=== PATIENT | female | born 1955 | race Caucasian/White ===

== ENCOUNTER 2017-04-03 12:04 | Emergency (ER) | payer BC ==
[2017-04-03 12:15] VITALS: BP 166/90
[2017-04-03] MEDS ORDERED: Rabies VIRUS VACCINE, HDCV* 2.5 UNIT/ML 1 ML IM ONE (14:16)
[2017-04-03] MEDS ORDERED: Tetan/Diph/Pertus SYR(Tdap)* 0.5 ML SYR(BOOSTRIX) use SYR IM ONE (14:16)
[2017-04-03] MEDS ORDERED: Rabies Immune Globulin(Human)* 150 UNITS/ML 2 ML VIAL (300 UNITS) IM ONE (14:16)
--- NOTE | 2017-04-03 14:18 | ED ---
Bite Injury/Animal - HPI Summary HPI Summary: 62 female presents from [facility] urgent care with complaints of being attacked and bitten by a page just A [employer] ~2 hours ago while at work. 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 She states the page repeatedly attacked her, even when she was hitting it with a broom to get him away. She denies noticing any foaming of the mouth. States bleeding is under control however her ankle is very sore. Has never had rabies vaccinations in the past. Denies PMhx. She contacted the [facility] who obtianed the animal and are testing it for rabies. Also informed her she needed to have her first dose of rabies prophylaxis due to the animals behavior. - History of Current Complaint Chief Complaint: EDAnimalBite Stated Complaint: PAGE BITE Time Seen by Provider: 04/03/17 12:17 Hx Obtained From: Patient Onset of Injury: Happened hours ago Type of Bite: Wild Animal - page Hx of Bite: Unprovoked Has Animal Been Immunized?: No Severity Initially: Mild Severity Currently: Mild Pain Intensity: 3 Pain Scale Used: 0-10 Numeric Character: Abrasion/Laceration - 2 of right ankle Aggravating Factor(s): Nothing Alleviating Factor(s): Nothing Associated Signs And Symptoms: Positive: Negative Animal Available for Observation: Yes Animal Control Notified: Yes - Allergies/Home Medications Allergies/Adverse Reactions: Allergies Allergy/AdvReac Type Severity Reaction Status Date / Time No Known Allergies Allergy Verified 08/17/16 17:54 PMH/Surg Hx/FS Hx/Imm Hx Endocrine/Hematology History: Denies: Hx Diabetes Cardiovascular History: Reports: Hx Hypertension - Surgical History Surgery Procedure, Year, and Place: Hysterectomy with benign tumor - Immunization History Date of Tetanus Vaccine: 04/03/17 Immunizations Up to Date: Yes Infectious Disease History: Reports: Hx Shingles Denies: Traveled Outside the [place] in Last 30 Days - Family History Known Family History: Positive: Other - NONCONTIBUTORY - Social History Alcohol Use: None Substance Use Type: Reports: None Smoking Status (MU): Never Smoked Tobacco Review of Systems Constitutional: Negative Cardiovascular: Negative Respiratory: Negative Gastrointestinal: Negative Musculoskeletal: Negative Positive: Other - laceration from animal bite, pain Neurological: Negative All Other Systems Reviewed And Are Negative: Yes Physical Exam Triage Information Reviewed: Yes Vital Signs On Initial Exam: Initial Vitals Temp Pulse Resp BP Pulse Ox 96.6 F 86 17 166/90 99 04/03/17 12:10 04/03/17 12:10 04/03/17 12:10 04/03/17 12:10 04/03/17 12:10 BP elevated however patient is diagnosed with HTN. Vital Signs Reviewed: Yes Appearance: Positive: Well-Appearing, No Pain Distress, Well-Nourished Skin: Positive: Warm, Skin Color Reflects Adequate Perfusion, Dry, Other - 2 lacerations to right posterior ankle. 1 approximately 1cm in length linear and second 1.5cm in length, both epidermal layer and linear. no surrounding erythema , not actively bleeding. No FB.. Negative: Cold, Numb Head/Face: Positive: Normal Head/Face Inspection Eyes: Positive: Normal, Conjunctiva Clear ENT: Positive: Hearing grossly normal Neck: Positive: Supple, Nontender Respiratory/Lung Sounds: Positive: Clear to Auscultation, Breath Sounds Present. Negative: Rales, Rhonchi, Stridor, Wheezes Cardiovascular: Positive: Normal, RRR, Pulses are Symmetrical in both Upper and Lower Extremities - 2 +. Negative: Murmur, Rub Abdomen Description: Positive: Nontender Bowel Sounds: Positive: Present Musculoskeletal: Positive: Normal, Strength/ROM Intact Neurological: Positive: Normal, Sensory/Motor Intact - sensation intact, Alert, Oriented to Person Place, Time, CN Intact II-III, Reflexes Intact, NV Bundle Intact Distally, Normal Gait Psychiatric: Positive: Normal AVPU Assessment: Alert Procedures - Laceration/Wound Repair 1 Location: Other - right ankle Description: Linear Length, Depth and Shape: 1.5cm length, epidermal layer, linear Irrigated w/ Saline (ccs): 150 Laceration/Wound Explored: clean, no foreign body removed Closure: SteriStrips - 2 Sterile Dressing Applied?: Yes - telfa and coband Diagnostics - Vital Signs Vital Signs Temp Pulse Resp BP Pulse Ox 04/03/17 12:10 96.6 F 86 17 166/90 99 - Laboratory Lab Statement: Any lab studies that have been ordered have been reviewed, and results considered in the medical decision making process. Bite Injury Course/Dx - Course Course Of Treatment: patients wounds were irrigated with 100cc of normal saline. rabies prophylaxis administered by me into the wound 3.5ml. Remaining 8.5 adminstered IM. Patient tolerated procedure well. !.5cm lac was steri strippled with 2 steri strips, not completely closed due to concern for infection. No concern for fracture. Also updated rabies vaccine and tetanus. Aware of remaining prphylaxis regimen and working with [facility]. [facility] was spoken with multiple times throughout visit and advised to give the rabies prophylaxis due to animal behavior.Given augmentin for prophylaxis x 10 days. Aware of worsening signs and symptoms. Folllow up with [facility] and PCP. - Diagnoses Differential Diagnosis/HQI/PQRI: Positive: Cellulitis, Laceration, Rabies Exposure, Other Provider Diagnosis: Rabies, need for prophylactic vaccination against, Animal bite of ankle Discharge - Discharge Plan Condition: Stable Disposition: HOME Prescriptions: Amoxicillin/Clavulanate TAB* [Augmentin TAB 875*] 875 mg PO BID #20 tab Patient Education Materials: Rabies (ED), Rabies Immune Globulin (By injection) , Rabies Vaccine (ED), Animal Bite (ED) Referrals: Yohana Vidales MD [Primary Care Provider] - Additional Instructions: Take prescribed antibiotic as directed until entire dose is finished. Watch for signs of infection of lacerations (redness, swelling, discharge, warmth). Follow up with PCP. You will hear from [facility] tomorrow evening. Continue rabies prophylaxis vaccinations as scheduled at [facility] day 3, 7 and 14. If symptoms worsen or new symptoms develop please seek medical attention promptly.
[2017-04-03] MEDS ORDERED: Rabies Immune Globulin(HUMAN)* 150 UNIT/ML 10 ML IM ONE ×2 (14:44→14:49)
[2017-04-03] MEDS ORDERED: Rabies Vaccine, PCEC INJ* 1 ml ONE (14:54)
== END 2017-04-03 16:33 | disposition home or self-care (01) ==
LOC: ED 12:04
DX: S91.051A Open bite, right ankle, initial encounter (principal); W64.XXXA Exposure to other animate mechanical forces, initial encounter; Y93.9 Activity, unspecified; Y92.9 Unspecified place or not applicable; Y99.9 Unspecified external cause status
CPT/HCPCS: 90375; 90471; 90675; 90715; 99283

== ENCOUNTER 2019-02-02 13:40 | Emergency (ER) | payer BC, OTHER ==
[2019-02-02 13:52] VITALS: BP 142/98
[2019-02-02] MEDS ORDERED: Ondansetron ODT TAB* 4 MG PO ONE (14:11)
--- NOTE | 2019-02-02 14:15 | UC ---
Abdominal Pain Female HPI - HPI Summary HPI Summary: 4 days of nausea and fatigue---no fevers today began with LLQ pain and vomiting - History of Current Complaint Chief Complaint: UCGI Stated Complaint: ABDOMINAL PAIN Time Seen by Provider: 02/02/19 14:07 Hx Obtained From: Patient ?: No Onset/Duration: Gradual Onset, Lasting Days - 4, Worse Since - noon today Timing: Constant Pain Intensity: 7 Pain Scale Used: 0-10 Numeric Location: Discrete At: LLQ Radiates: No Character: Colicy, Cramping Aggravating Factor(s): Nothing Alleviating Factor(s): Nothing Associated Signs and Symptoms: Positive: Decreased Appetite, Nausea Allergies/Adverse Reactions: Allergies Allergy/AdvReac Type Severity Reaction Status Date / Time No Known Allergies Allergy Verified 02/02/19 13:52 Home Medications: Home Medications Lisinopril TAB* [Prinivil TAB 5 MG*] 1 tab PO DAILY 02/02/19 [History Confirmed 02/02/19] PMH/Surg Hx/FS Hx/Imm Hx Previously Healthy: No Cardiovascular History: Hypertension - Surgical History Surgical History: Yes Surgery Procedure, Year, and Place: Hysterectomy with benign tumor - Family History Known Family History: Positive: Other - NONCONTIBUTORY - Social History Occupation: Employed Full-time Lives: With Family Alcohol Use: None Substance Use Type: None Smoking Status (MU): Never Smoked Tobacco - Immunization History Most Recent Tetanus Shot: UTD Review of Systems All Other Systems Reviewed And Are Negative: Yes Constitutional: Positive: Negative Skin: Positive: Negative Eyes: Positive: Negative ENT: Positive: Negative Respiratory: Positive: Negative Cardiovascular: Positive: Negative Gastrointestinal: Positive: Abdominal Pain, Vomiting, Nausea Genitourinary: Positive: Negative Motor: Positive: Negative Neurovascular: Positive: Negative Musculoskeletal: Positive: Negative Neurological: Positive: Negative Psychological: Positive: Negative Is Patient Immunocompromised?: Yes Physical Exam Triage Information Reviewed: Yes Appearance: Well-Nourished, Ill-Appearing, Pain Distress Vital Signs: Initial Vital Signs Temp 96.9 F 02/02/19 13:49 Pulse 95 02/02/19 13:49 Resp 18 02/02/19 13:49 BP 142/98 02/02/19 13:49 Pulse Ox 98 02/02/19 13:49 Vital Signs Reviewed: Yes Eye Exam: Normal Eyes: Positive: Conjunctiva Clear ENT Exam: Normal ENT: Positive: Normal ENT inspection, Hearing grossly normal. Negative: Trismus , Muffled voice, Hoarse voice Dental Exam: Normal Neck exam: Normal Neck: Positive: Supple, Nontender Respiratory Exam: Normal Respiratory: Positive: Chest non-tender, No respiratory distress, No accessory muscle use Cardiovascular Exam: Normal Cardiovascular: Positive: RRR, Brisk Capillary Refill Abdomen Description: Negative: Nontender Musculoskeletal Exam: Normal Musculoskeletal: Positive: Strength Intact, ROM Intact, No Edema Neurological Exam: Normal Neurological: Positive: Alert, Muscle Tone Normal Psychological Exam: Normal Skin Exam: Normal Abd Pain Female Course/Dx - Course Course Of Treatment: will d/c patient from urgent care to go to hospital by private car with daughter driving--- - Differential Dx/Diagnosis Provider Diagnosis: Acute abdominal pain Discharge - Sign-Out/Discharge Documenting (check all that apply): Patient Departure All imaging exams completed and their final reports reviewed: No Studies - Discharge Plan Condition: Stable Disposition: HOME Patient Education Materials: Acute Abdominal Pain (DC) Referrals: Yohana Vidales MD [Primary Care Provider] - Additional Instructions: nothing to eat of drink---go directly to the emergency department for further care - Billing Disposition and Condition Condition: STABLE Disposition: Home
== END 2019-02-02 14:15 | disposition home or self-care (01) ==
LOC: UCEAST 13:40
DX: R10.32 Left lower quadrant pain (principal); R11.2 Nausea with vomiting, unspecified; I10 Essential (primary) hypertension; Z90.710 Acquired absence of both cervix and uterus
CPT/HCPCS: 99212; A9270-GY; G0463

== ENCOUNTER 2019-02-02 14:37 | Emergency (ER) | payer BC ==
--- NOTE | 2019-02-02 15:29 | ED ---
Abdominal Pain/Female - HPI Summary HPI Summary: This patient is a 63 year old F arrives by private car to [facility] from [facility] accompanied by her daughter with a chief complaint of nausea, fatigue, and decreased appetite for the past four days. Suddenly at noon today LLQ burning/ pressure pain began that radiates into the groin. Pain rated at 8/10 that improved after vomiting today to a 5/10. Two bouts of vomiting today that looked like undigested food. One bout of diarrhea today. Reports chills, bi- frontal headache, left breast pain last night for a couple hours that is currently resolved, and two bouts of SOB early this week. Patient reports recent illness with non-productive cough and rhinorrhea. Denies recent fever, urinary symptoms, hx of kidney stones. and LE pain/swelling. Denies blood in vomit or diarrhea. Patient called her PCP, Dr. Vidales and was sent to the Emergency Department for imaging. Reports previous colonoscopy was normal. 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 Vital signs while in room: HR 142 bpm, BP 122/63, O2 sat 93%, Temperature 103.1 by mouth Patient given 4mg ODT at [facility] - History of Current Complaint Chief Complaint: EDAbdPain Stated Complaint: NAUSEA, ABD PAIN PER DAUGHTER Hx Obtained From: Patient, Other: - urgent care records Onset/Duration: Sudden Onset, Lasting Hours Timing: Constant Severity Initially: Severe Severity Currently: Moderate Pain Intensity: 5 Pain Scale Used: 0-10 Numeric Location: Discrete At: LLQ Radiates: Yes Radiates to: Inguinal Character: Sharp Aggravating Factor(s): Nothing Alleviating Factor(s): Vomiting Associated Signs and Symptoms: Positive: Fever, Cough, Decreased Appetite, Nausea, Vomiting, Diarrhea Allergies/Adverse Reactions: Allergies Allergy/AdvReac Type Severity Reaction Status Date / Time No Known Allergies Allergy Verified 02/02/19 14:52 PMH/Surg Hx/FS Hx/Imm Hx Previously Healthy: No Endocrine/Hematology History: Reports: Hx Diabetes - "pre-diabetic" Cardiovascular History: Reports: Hx Hypertension GI History: Reports: Hx Ulcer - per pt "lactic ulcer". 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 Negative: Fever Positive: Nasal Discharge Positive: Chest Pain - left side, last pm, sharp, fleeting, mild, resolved Positive: Shortness Of Breath, Cough Positive: Abdominal Pain, Vomiting, Diarrhea, Nausea Positive: no symptoms reported Negative: Myalgia, Edema Skin: Negative Positive: Headache Psychological: Normal All Other Systems Reviewed And Are Negative: Yes Physical Exam - Summary Physical Exam Summary: Appearance: Ill-appearing, moderate pain distress, well-nourished, febrile, tachycardic Skin: Warm, color reflects inadequate perfusion, mottling on abdomen, diffuse; dry Head: Normal Head/Face inspection, atraumatic Eyes: Conjunctiva clear ENT: Normal inspection, moist mucosa Neck: Supple, no nodes, no JVD Respiratory: Lungs clear, normal breath sounds, no respiratory distress Cardio: RRR, No murmur, pulses normal, brisk capillary refill Abdomen: Soft, tender LLQ, no guarding, no rebound, no masses, no CVAT, no hernia Bowel sounds: Present Musculoskeletal: Strength Intact/ROM intact, no calf tenderness, no edema. Psychological: Normal Neuro: Alert, muscle tone normal, no focal deficit Triage Information Reviewed: Yes Vital Signs On Initial Exam: Initial Vitals Temp Pulse Resp BP Pulse Ox 98.7 F 114 18 148/98 98 02/02/19 14:40 02/02/19 14:40 02/02/19 14:40 02/02/19 14:40 02/02/19 14:40 Vital Signs Reviewed: Yes Diagnostics - Vital Signs Vital Signs Temp Pulse Resp BP Pulse Ox 02/02/19 14:40 98.7 F 114 18 148/98 98 - Laboratory Result Diagrams: 02/02/19 15:51 02/02/19 15:51 Lab Statement: Any lab studies that have been ordered have been reviewed, and results considered in the medical decision making process. - Radiology CXR Radiology Interpretation Completed By: Radiologist Summary of Radiographic Findings: NO ACTIVE CARDIOPULMONARY DISEASE IS NOTED. ED physician has reviewed this report. - CT CT A/P CT Interpretation Completed By: Radiologist Summary of CT Findings: 1. 5 mm obstructing calculus in proximal left ureter with significant left. hydronephrosis, perinephric fluid and stranding, and proximal periureteral. stranding. Urothelial enhancement is also noted in the dilated proximal left. ureter. Superimposed infection is not excluded. 2. Status post hysterectomy. ED Physician has reviewed this report. - EKG 1613 Cardiac Rate: Tachycardia - 139 BPM EKG Rhythm: Sinus Tachycardia ST Segment: Non-Specific Ectopy: None EKG Comparison: Other - no prior to compare Summary of EKG Findings: reveals nml AV/IV CT, left axis deviation (-67). nonspecific ST-T changes, rate related ST-T wave 1mm depression across anterior leads Re-Evaluation - Re-Evaluation 1 Re-Evaluation Time: 18:30 Change: Improved Comment: SEPSIS REASSESSMENT: SEE SEPSIS PROGRESS NOTE: Nurse Orquidea reports sepsis protocol fluids have infused 2650ml NS. RE-EXAM DONE. Appearance: Ill- appearing, moderate pain distress, well-nourished. Skin: Warm; color reflects adequate perfusion, improved since admission after fluids; dry. Head: Normal Head/Face inspection, atraumatic. Eyes: Conjunctiva clear. ENT: Normal inspection. Neck: Supple, no nodes, no JVD. Respiratory: Lungs clear, normal breath sounds, no respiratory distress. Cardio: RRR, No murmur, pulses normal, brisk capillary refill. Abdomen: Soft, tender LLQ, no rebound or guarding. Bowel sounds: Present. Musculoskeletal: Strength Intact/ROM intact, no calf tenderness, no edema. Psychological: Normal. Neuro: Alert, muscle tone normal , no focal deficit 2 Re-Evaluation Time: 19:28 Change: Worse Comment: Dr. Tovar in room with patient. Pt now in septic shock. Is on vasopressor, norepinephrine drip, discussed with pharmacist, Sasha for MAP <65 x 2 in a row measurements. Pt's appearance is improved, remains awake and alert. Abd, soft, tender LLQ. Pain is controlled. Daughter remains with pt. 3 Re-Evaluation Time: 20:10 Change: Improved Comment: Informed consent obtained for transfer. BP improved on norepinephrine drip. Pt remains awake and alert. Abdominal Pain Fem Course/Dx - Course Course Of Treatment: 63 year old F arrives by private car to [facility] after walking into [facility] accompanied by her daughter with a chief complaint of nausea, fatigue, and decreased appetite for the past four days. Suddenly at noon today LLQ burning/pressure pain began that radiates into the groin. Two bouts of vomiting today that looked like undigested food. One bout of diarrhea today. Reports chills, bi-frontal headache, left breast pain last night for a couple hours that is currently resolved, and two bouts of SOB early this week. Patient reports recent illness with non-productive cough and rhinorrhea. Denies recent fever, urinary symptoms, hx of kidney stones. and LE pain/swelling. PMHx of HTN , lactic ulcer, endometriosis, and pre-diabetes controlled with diet. Vital signs while in room: HR 142 bpm, BP 122/63, O2 sat 93%, Temperature 103.1 by mouth. Patient given 4mg ODT at [facility]. Sepsis protocol initiated with abnormal vital signs room and SIRS criteria meet. 30ml per kilo of fluids given to 2650mls total. Patient additionally given 4mg morphine, 15mg IV Toradol, 4mg IV Zofran, and IV Zosyn 3.375gm for likely intraabdominal source. Of note, blood cultures obtain prior to IV antibiotics, however urine culture not obtained prior to antibiotics. Pt unable to provide urine sample at time requested. Waiting to give antibiotics in order to obtain urine culture would be detrimental to pt's care and her condition could worsen by waiting for UA sample. Abnormal Bloodwork reveals WBC 2.3, RBC 4.99, Hct 46, Plt count 101, absolute lymphs 0.2, APTT 22.4, sodium 134, chloride 100, BUN 25, Creatinine 1.28, glucose 185, lactic acid 3.3, magnesium1.7, total bilirubin 1.2, C- reactive protein 12.7. Flu swabs are negative. At 174, Dr. Keane, hospitalist agrees to see patient in the ED. Patient went to CT at 1747. CT A/P as per radiologist, "1. 5 mm obstructing calculus in proximal left ureter with significant left. hydronephrosis, perinephric fluid and stranding, and proximal periureteral. stranding. Urothelial enhancement is also noted in the dilated proximal left. ureter. Superimposed infection is not excluded. 2. Status post hysterectomy. SEPSIS RE-EVAL at 1830: HR 120 BPM, SaO2 91, MAP 75. At 1854 informed patients BP manually is 60/48 and pressors are given immediately. Patient will require transfer for nephrostomy, is not stable for stent placement, per Dr. Tovar, urology, recommendation. At 1920 patients RN informs of MAP in 80 on norepinephrine drip. At 192 Patient will be transferred to [facility], as they are the closest facility able to perform the needed percutaneous nephrosomy. Accepting physician is unknown at this time , will discuss futher with hr business partner. At 1930, Dr. Bradshaw, hr business partner will be accepting physician for ED to ICU transfer. Prior to transfer, BP 110/63 on norepinephrine drip at 8 mcgs/min, Temp is 100.9. P112, resps unlabored, no hypoxia. Pt remains alert, oriented. LLQ pain unchanged, tender on palpation without guarding or rebound with BS present. Skin turgor normal, no mottling. Pt is in critical condition, stable for transfer on norepinephrine drip, ALS status, [facility]. Family remain with pt (son, daughter and son-in-law) and they witnessed informed consent to transfer and are aware of pt's critical condition. - Diagnoses Differential Diagnosis: Positive: Bowel Obstruction, Diverticulitis, Renal Colic , Urinary Tract Infection Provider Diagnoses: Abdominal pain, Tachycardia, Septic shock, Hydronephrosis due to obstruction of ureter, Fever, Acute hypotension, Leukopenia, Thrombocytopenia, Hypomagnesemia, UTI (urinary tract infection) - Provider Notifications Discussed Care Of Patient With: Galo Tovar - needs transfer for nephrostomy. Too unstable due to hypotension requiring pressors for pt to have urinary stent placed Reason For Transfer: Specialty available at [facility] but not transplant nurse practitioner. - no IR transplant nurse practitioner today at [facility] - Critical Care Time Critical Care Time: 75-104 min - 80 minutes Discharge - Sign-Out/Discharge Documenting (check all that apply): Patient Departure - transfer - Discharge Plan Condition: Critical Disposition: TRANS HIGHER LVL OF CARE FAC Referrals: Yohana Vidales MD [Primary Care Provider] - - Billing Disposition and Condition Condition: CRITICAL Disposition: Trans Higher Lvl of Care Fac - Attestation Statements Document Initiated by Scribe: Yes Documenting Scribe: Sujatha Jorge Provider For Whom Bijan is Documenting (Include Credential): Genet Abdalla MD Scribe Attestation: Sujatha Padron, scribed for Genet Abadlla MD on 02/03/19 at 0002. Scribe Documentation Reviewed: Yes Provider Attestation: The documentation as recorded by the Sujatha riojas accurately reflects the service I personally performed and the decisions made by meGenet MD Status of Scribe Document: Viewed
[2019-02-02] MEDS ORDERED: NS 0.9% 1000 ML** 2,000 ML IV SCH (15:30)
[2019-02-02] MEDS ORDERED: Morphine 4 MG/ML VIAL (1 ml) 4 MG/ML VIAL IV ONE (15:40)
[2019-02-02] MEDS ORDERED: Ondansetron INJ* 2 MG/ML VIAL IV ONE (15:56)
[2019-02-02 15:59] LABS: ABS Basophils 0 10^3/ul (0-0.2); ABS Eosinophils 0 10^3/ul (0-0.6); ABS Lymphocytes 0.2 10^3/ul (1.0-4.8); ABS Monocytes 0 10^3/ul (0-0.8); ABS Nucleated RBC 0 10^3/ul; Eosinophil % 0.3 %; Hematocrit 46 % (33-41); Hemoglobin 15.5 g/dL (12.0-16.0); Lymphocyte % 8.2 %; Mean Corpuscular HGB Conc 34 g/dL (31-36); Mean Corpuscular Hemoglobin 31 pg (27-31); Mean Corpuscular Volume 92 fL (80-97); Mean Platelet Volume 8.2 fL (7.4-10.4); Nucleated Red Blood Cells % 0.4; Platelet Count 101 10^3/uL (150-450); Red Blood Count 4.99 10^6 /uL (3.70-4.87); Red Cell Distribution Width 12 % (10.5-15); White Blood Count 2.3 10^3/uL (3.5-10.8)
[2019-02-02 16:11] LABS: Activated Partial Thrombo Time 22.4 seconds (26.0-36.3); INR 0.99 (0.77-1.02)
[2019-02-02] MEDS ORDERED: NS 0.9% IV ONE (16:15)
[2019-02-02 16:16] LABS: Albumin 4.3 g/dL (3.2-5.2); Albumin/Globulin Ratio 1.6 (1-3); BUN/Creatinine Ratio 19.5 (8-20); C Reactive Protein 12.7 mg/L (<8.01); Calcium 9.4 mg/dL (8.6-10.3); EGFR African American 51.3 (>60); EGFR Non-African American 42.4 (>60); Globulin 2.7 g/dL (2-4); Magnesium 1.7 mg/dL (1.9-2.7); Potassium 4.3 mmol/L (3.5-5.0); Total Bilirubin 1.2 mg/dL (0.2-1.0)
[2019-02-02] MEDS ORDERED: Piperacillin/Tazobac ADVAN(*) 3.375 GM in NS 0.9% 100 ML* 100 ML IVPB ONE (16:19)
[2019-02-02 16:50] LABS: Influenza A Molecular NEGATIVE (Negative); Influenza B Molecular NEGATIVE (Negative)
[2019-02-02] MEDS ORDERED: Ketorolac INJ* 30 MG/ML 1 ML VIAL IV PUSH ONE (16:57)
[2019-02-02] MEDS ORDERED: Iodixanol* (CONTRAST) 320 MG/ML 100 ML SDV IV ONE (17:08)
[2019-02-02] MEDS ORDERED: Norepinephrine 16MCG/ML IVPRE* 4,000 MCG/250 ML BAG IV SCH (19:00)
--- NOTE | 2019-02-02 19:09 | PN ---
Hospitalist Progress Note Date of Service: 02/02/19 Brief Hospitalist Consult Note, Full Report to Follow: Patient Evaluated for Admission due to Sepsis. Patient had 4 days of F/C, N/V and today developed severe abdominal pain radiating to the groin, In the ED patient is Severely Tachycardic and has low BPs. Patient did not adequately respond to fluid bolus and is requiring vasopressors. CT A/P shows left sided obstructing kidney stone with hydronephrosis based on this author's read. Discussed with Dr. Tovar of urology who recommended Nephrostomy tube and transfer if necessary. Advised patient to be transferred to nearest facility with this capability.
[2019-02-02 19:21] LABS: Urine Appearance Cloudy; Urine Bacteria 1+ (Absent); Urine Bilirubin Negative (Negative); Urine Blood 2+ (Negative); Urine Color Yellow; Urine Glucose Negative (Negative); Urine Ketones Trace (Negative); Urine Nitrite Negative (Negative); Urine Protein 1+(30 mg/dL) (Negative); Urine Red Blood Cell Absent (Absent); Urine Specific Gravity 1.027 (1.010-1.030); Urine Squamous Epithelial Cell Present (Absent); Urine Urobilinogen Negative (Negative); Urine White Blood Cell 2+(11-20/hpf) (Absent)
[2019-02-02 20:44] VITALS: BP 113/70
--- NOTE | 2019-02-02 23:56 | PN ---
Sepsis Event Evaluation Date of Evaluation: 02/02/19 - after RN states 30ml/kg IVNS infused Current Stage of Sepsis: Severe Sepsis Vital Signs - Last 12 Hours: Vital Signs - 12 hr Temp Pulse Resp BP Pulse Ox 02/02/19 20:44 100.2 F 112 24 113/70 98 02/02/19 20:31 119 18 115/71 98 02/02/19 20:26 115 26 109/65 97 02/02/19 20:21 117 24 116/69 98 02/02/19 20:16 100.4 F 118 21 110/63 98 02/02/19 20:11 116 30 115/66 97 02/02/19 20:06 113 25 118/76 98 02/02/19 20:01 115 23 117/71 97 02/02/19 20:00 115 17 97 02/02/19 19:56 116 23 123/69 97 02/02/19 19:51 114 22 126/71 97 02/02/19 19:46 113 25 116/64 96 02/02/19 19:41 114 30 116/72 96 02/02/19 19:36 110 26 121/74 96 02/02/19 19:31 112 24 113/70 96 02/02/19 19:27 100.9 F 02/02/19 19:24 102 27 85/56 95 02/02/19 19:10 101 33 80/56 96 02/02/19 19:03 101 22 84/54 95 02/02/19 18:51 105 26 69/47 02/02/19 18:48 108 27 94/63 97 02/02/19 18:39 103 20 82/53 95 02/02/19 18:15 108 22 90/57 92 02/02/19 18:10 101.3 F 110 21 80/60 92 02/02/19 17:10 119 22 102/62 91 02/02/19 16:40 127 23 136/65 95 02/02/19 16:36 103.1 F 128 16 122/63 94 02/02/19 16:33 94 02/02/19 16:14 101.3 F 123 20 122/63 92 02/02/19 16:10 103.1 F 138 14 122/63 92 02/02/19 14:40 98.7 F 114 18 148/98 98 Lactic Acid: 02/02/19 15:51 Lactic Acid 3.3 H* - Cardiopulmonary Exam Capillary Refill: < or = to 5 seconds Respiratory: Symmetrical Chest Expansion and Respiratory Effort, Clear to Auscultation Cardiovascular: NL Sounds; No Murmurs; No JVD, RRR, No Edema - Peripheral Pulse Exam Radial Pulses: Bilateral Normal Pedal Pulses: Bilateral Normal Posterior Tibial Pulse: Bilateral Normal - Skin Exam Skin Exam: Normal Turgor - Vicky Coma Scale Best Eye Response: 4 - Spontaneous Best Motor Response: 6 - Obeys Commands Best Verbal Response: 5 - Oriented Coma Scale Total: 15 Assess/Plan/Problems-Billing Assessment:
--- NOTE | 2019-02-03 01:52 | CONS ---
CC: Dr. Genet Abdalla; Dr. Galo Tovar * CONSULTATION REPORT: DATE OF CONSULT: 02/02/19 - EMERGENCY DEPT CONSULTING PROVIDER: Genet Abdalla MD CONSULTING UROLOGIST: Dr. Galo Tovar. CHIEF COMPLAINT: Severe left lower quadrant abdominal pain. HISTORY OF PRESENT ILLNESS: Ms. Obando is a 63-year-old female with past medical history significant only for hypertension and fatty liver disease, who presents to the emergency department with 4 days of intermittent nausea, dizziness, fatigue, fevers, and chills. The patient states these have been on and off. The patient has not passed out but feels dizzy frequently when she stands up. This happened before when she was initiated on blood pressure medications but this is not a common occurrence for her. The patient assumed she just had a viral respiratory infection as she had been exposed many of them at work. The patient has had poor oral intake, taking very little fluid and then not being able to tolerate any soft food. The patient then suddenly on the morning of had sudden pressure and abdominal pain in her left lower quadrant which radiated into her groin with severe and stabbing. The patient has never had an urinary tract infection in the past. The patient had urinary incontinence, urinary frequency but no dysuria, no hematuria, no pyuria but having drinking lots of water and still producing quite a bit of urine. The patient had no pain in her back. The patient denies diarrhea, abdominal pain, chest pain, or shortness of breath. In the emergency department, the patient was found to have a low white blood cell count of 2.3, low platelet count at 101, elevated creatinine 1.28, elevated lactic 3.3, elevated bilirubin at 1.2, had negative Influenza A and B. Chest x-ray was negative. CT abdomen and pelvis revealed left-sided obstructive kidney stone with perinephric stranding, epithelial enhancement and with hydronephrosis and concern for superimposed infection. The patient in the emergency department was tachycardic and her blood pressure was initially in the normal range but quickly deteriorated with MAPs consistently below 65 with the lowest being blood pressure approximately 60/30 confirmed by manual blood pressure reading. The patient was then initiated on vasopressors. The patient received approximately 5 L of fluid in the emergency department with her blood pressure remaining low. This case was discussed with Dr. Galo Tovar of Urology, who said that given that there can be a transient increase in septic symptoms after a stent is placed that even if the patient was able to be stabilized on pressors, she will be a high risk to take to the emergency department and percutaneous nephrostomy tube would be preferable. There is no interventional radiology rehabilitation therapist at this institution at this time. PAST MEDICAL HISTORY: Hypertension, current shingles, fatty liver disease . PAST SURGICAL HISTORY: Hysterectomy MEDICATIONS: 1. Lisinopril 5 mg p.o. daily. 2. Vitamin B complex 1 tab p.o. daily. 3. Milk thistle 1 tab p.o. daily. 4. Topical cannabis CBD oil for left rib pain. ALLERGIES: No known drug allergies. FAMILY HISTORY: The patient's mother is alive and has dementia. The patient's father of pancreatic cancer. The patient's brother has prediabetes. The patient's another brother with asthma and gout. The patient has 4 other siblings who are healthy. SOCIAL HISTORY: The patient has never smoked, drink, or use illicit drugs. 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 REVIEW OF SYSTEMS: A 14-point review of systems was reviewed and is negative except as above in the HPI. PHYSICAL EXAM: General: The patient is a 63-year-old female who appears stated age and sitting comfortably in bed, in no acute distress. Vital Signs: At the time of evaluation, temperature 101.3, pulse rate 110, respiratory rate 22, oxygen saturation 95% on 2 L, blood pressure 90/62. Reevaluation of blood pressure at low of 60/30, increased back up with fluid boluses pending initiation of vasopressors to approximately 80/50 with a MAP persistently below 65. HEENT: Head, normocephalic, atraumatic. Sclerae anicteric. No conjunctival injection. Nasal mucosa moist. Oral mucosa moist. Cyanotic lips. Cardiac: Tachycardic. No clicks, murmurs, gallops, or rubs. Pulses are 2+ in bilateral dorsalis pedis, posterior tibialis and radial areas. No bilateral lower extremity edema noted. Respiratory: Clear to auscultation bilaterally. No wheezes, rales, or rhonchi. Good air exchange bilaterally. Abdomen: Soft, nontender, and nondistended. Bowel sounds present and hypoactive in all 4 quadrants. No hepatosplenomegaly. No abdominal bruits auscultated. Genitourinary: No suprapubic or CVA tenderness. Skin: Clean, dry , and intact. No rash. Neuro: Cranial nerves II through XII intact. No focal deficits. Alert and oriented x3. Psychiatric: Pleasant and cooperative. DIAGNOSTIC STUDIES/LAB DATA: Laboratory data: White blood cell count 2.3, hemoglobin 15.5, platelet count 101. INR of 0.99, APTT 22.4. Sodium 134, potassium 4.3, chloride 100, carbon dioxide 25, anion gap 9, BUN 25, creatinine 1.28, glucose 185, lactic acid 3.3, calcium 9.4, magnesium 1.7, bilirubin 1.2, AST 22, ALT 17, alkaline phosphatase 80, creatinine kinase 85. Troponin I 0.00. CRP 12.7. Protein 7, albumin 4.3, globulin 2.7. Amylase 44, lipase 22. Influenza A and B negative. Studies: EKG showed sinus tachycardia, ST segment depression in the lateral leads. No blocks or hypertrophy. No ST segment elevation. Left axis deviation , rate of 139, QTc of 428. Chest x-ray revealed no acute pulmonary disease. Abdomen and pelvis CT read as 5 mm obstructing calculus in the proximal left ureter, significant left hydronephrosis, perinephric fluid and stranding in the proximal ureter revealed stranding urothelial enhancement also noted in the dilated proximal left ureter, superimposed infection not exclude, status post hysterectomy. ASSESSMENT AND PLAN: Ms. Obando is a 63-year-old female with past medical history significant only for hypertension and fatty liver disease, who presents to the emergency department with 4 days of infectious symptoms and 1 day of severe left lower quadrant abdominal pain radiating to her groin, who was found to have severe sepsis and obstructing left-sided renal stone and will be transferred for percutaneous nephrostomy tube and continue care for her sepsis. 1. Severe sepsis. The patient's severe sepsis is likely related to a urinary source associated with her renal stone. The patient has been given Zosyn in the emergency department, which is appropriate. The patient has received over 4 L of fluid and her MAP is still below 60. The patient will be started on a norepinephrine drip. This case has been discussed with Dr. Galo Tovar of Urology, who recommended a percutaneous nephrostomy tube to avoid transient worsening on her septic symptoms. The patient will be transferred urgently to a facility capable of performing this intervention. This has been discussed with the ED provider, Dr. Genet Abdalla, and she is understanding that this process has been started. The patient will be continued on norepinephrine and additional pressors will be initiated to keep the MAP above 60. The patient will have repeat lactic acid drawn. The patient has no other signs of respiratory or intraabdominal infection. 2. Hypertension. The patient's hypertensives should be held at this time. 3. Disposition. The patient will be transferred to high level of care for percutaneous nephrostomy tube not available at this institution at this time. TIME SPENT: Approximately 75 minutes was spent on this consultation, 45 of which was spent [id number] with the patient, obtaining history and physical, and discussing treatment plan. The plan was discussed with my attending, Dr. Declan Keane MD, he is in agreement. VIRGINIA RICE [id number]/[facility] #: [id number] MTDStacy
--- NOTE | 2019-02-03 02:16 | CONS ---
GENITOURINARY CONSULTATION NOTE: DATE OF CONSULT: 02/02/19 HISTORY OF PRESENT ILLNESS: I was consulted by the hospitalist and ER services regarding this 63-year-old white lady who presented to the emergency room with urosepsis, hypotension, and an obstructing calculus in the proximal left ureter. Mrs. bOando's history goes back to about 4 or 5 days ago when she started feeling fatigued with headaches and minimal abdominal pain. She denied any voiding symptoms or any flank pain. She presented to the emergency room this afternoon with worsening symptoms, fatigue, left lower quadrant pain and high grade fever. There was no associated flank pain and no voiding symptoms. Her lab work showed a white count of 2,300 with 90% neutrophils. Her platelets were 100,000, her HH was normal. Her chemistries showed a serum creatinine of 1.3 and lactic acid of 3.3. Urinalysis was positive for esterase and nitrites. The patient had a CT of the abdomen and pelvis with IV contrast. The study showed a moderate left hydronephrosis with a 7 mm obstructing calculus in the proximal left ureter. While in the hospital, the patient spiked fever of 103, and her blood pressure dropped to 65 systolic. She remained intact mentally, without any confusion. She was resuscitated with fluids and started on pressors. She did respond and her blood pressure went up. Urine and blood cultures were obtained and she was started on Zosyn. A consultation was obtained On my evaluation on her now she looked comfortable and color was good and she had intact mental status. The blood pressure has gone up to 100 systolic. IMPRESSION: Urosepsis secondary to an obstructing proximal left ureteral calculus. The optimal management of this patient is urgent placement of a left percutaneous nephrostomy for drainage of her kidney as an initial step before definitive treatment of the left ureteral calculus. Placement of a left ureteral stent will be the next option if no interventional radiology is available. However, placing a stent will require anesthesia whisch should avoided when a pt is unstable, and instrumenting her kidney with the stent placement might throw her back into hypotension and heavy transient bacteremia making her sepsis temporarily worse. Considering the patient is becoming more stable, the proper management will be transferring her to a tertiary care center where Interventional Radiology is available for urgent placement of a left ureteral stent. The arrangements were made for the patient to be transferred to the [facility] urgently. Dr. Abdalla made the phone calls and discussed her condition with the receiving physicians and she will be taken directly from our ER to the ICU of the [facility]. I am available if the transfer is not feasible, or too delayed, and would then place a ureteral stent understanding that that is not the optimal management of her condition. [id number]/[facility] #: [id number] MTDD
== END 2019-02-02 20:44 | disposition short-term general hospital (02) ==
LOC: ED 14:37
DX: R65.21 Severe sepsis with septic shock (principal); R10.9 Unspecified abdominal pain; R00.0 Tachycardia, unspecified; N13.6 Pyonephrosis; I95.9 Hypotension, unspecified; D72.819 Decreased white blood cell count, unspecified; D69.6 Thrombocytopenia, unspecified; E83.42 Hypomagnesemia; N39.0 Urinary tract infection, site not specified; I10 Essential (primary) hypertension
CPT/HCPCS: 36415; 71045; 74177; 80053; 81003; 81015; 82150; 82550; 83605; 83690; 83735; 84484; 85025; 85610; 85652; 85730; 86140; 87040; 87077; 87086; 87186; 87205; 93005; 96361; 96374; 96375; 99285; J1885; J2270; J2405; J2543; Q9967

== ENCOUNTER → 2019-02-20 08:11 | Day surgery (SDC) | payer BC ==
--- NOTE | 2019-02-15 07:04 | HP ---
CC: Dr. Vidales * HISTORY AND PHYSICAL: DATE OF PLANNED ADMISSION AND SURGERY: 02/20/19 HISTORY OF PRESENT ILLNESS: Mrs. Obando is a 63-year-old white female who is admitted with a proximal left ureteral calculus, status post placement of a left nephroureteral stent for left nephroureteral stent removal, left ureteroscopy, laser lithotripsy of left ureteral calculus, and placement of left ureteral stent. Mrs. Obando's history course back to 18 days prior to this admission when she presented to emergency room at [facility] with fever, chills, and was found to be in septic shock and to have a 6 mm obstructing calculus in the proximal left ureter. The patient was leukopenic, acidotic, and hypotensive. She was resuscitated with fluids, placed on antibiotics and on pressors, and transferred urgently to the [facility] for insertion of a left nephrostomy tube. She did very well following the drainage of her kidney. Five days later, the left nephrostomy tube was converted into a nephroureteral stent. The patient's blood culture was positive for E. coli sensitive to all antibiotics. Her repeated lab work 2 days after her admission to the [facility] showed normal renal function, her white count up to 8500. She was slightly anemic and had a mild decrease in her platelets, at about 80,000. The patient was discharged home on Cipro and has done very well with full recovery from her recent infection and sepsis. KUB done at her visit to my office showed the nephroureteral stent in good position and a 6 to 7 mm calculus in the proximal left ureter adjacent to the stent. With the above history, the patient is admitted for the above procedure. PAST MEDICAL HISTORY AND SYSTEM REVIEW: The patient is generally healthy. She has a history of hypertension and was controlled on treatment. She has a history of fatty liver disease. PAST SURGICAL HISTORY: Relevant for a hysterectomy. MEDICATIONS: Presently her only medication is Cipro. ALLERGIES: She denies any allergies to medications. FAMILY HISTORY: Her father of pancreatic cancer. Her brother has prediabetes. Her mother is alive and has Alzheimer. SOCIAL HISTORY: She does not smoke, does not drink alcohol, and does not take any recreational drugs. 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 She is and has 2 children. PHYSICAL EXAMINATION GENERAL: She is pleasant and healthy looking white female. VITAL SIGNS: Blood pressure 120/80, pulse of 70. LUNGS: Clear. HEART: Regular and rhythmic, no murmurs. ABDOMEN: Soft, no masses, no tenderness. There is a left nephrostomy tube that is capped. IMPRESSION: 1. Recent episode of septic shock secondary to pyelonephritis and obstructing proximal left ureteral calculus. 2. Status post placement of left nephroureteral stent. PLAN/RECOMMENDATIONS: Plan is for removal of the left nephroureteral stent, cystoscopy, left ureteroscopy, laser lithotripsy, and left ureteral stent insertion. I discussed the above plans with the patient. It is possible that the calculus might migrate into her kidney when the nephroureteral stent is removed. If the calculus cannot be reached by ureteroscopy, the patient will have a stent placement and will then require shockwave lithotripsy of the left calculus. I discussed the above plans in detail with the patient. All her questions were answered. [id number]/[facility] #: [id number] ANTONIO
[~2019-02-20 08:11] MED LIST: Acetaminophen TAB* 325 MG PO PRN; Buffered Lidocaine 1% SYRIN* 1 ML/SYRINGE INTRADERM ONE; Dexamethasone IV* 4 MG/ML 1 ML (4 MG) IV SLOW PU ONE; Dexamethasone IV* 4 MG/ML 1 ML (4 MG) ONE; DiMENhydriNATE IV* 50 MG/ML VIAL IV PUSH PRN; EPHEDrine (Pressors)* 50 MG/ML VIAL ONE; Famotidine TAB* 20 MG ONE; Famotidine TAB* 20 MG PO ONE; HYDROcodone/ACETAMIN 5-325 MG* 1 TAB PO PRN; Ibuprofen TAB* 600 MG PO PRN; Iohexol 180 (CONTRAST) 10 ML SDV IV ONE; Lactated Ringers 1000 ML Bag* 1,000 ML IV SCH; Lidocaine 2% PF * 5 ML VIAL ONE; Midazolam* 1 MG/ML 5 ML VIAL (5 MG) ONE; Naloxone* 0.4 MG/ML 1 ML VIAL IV PRN; Ondansetron INJ* 2 MG/ML VIAL ONE; Propofol* 10 MG/ML 20 ML BTL ONE; cefTRIAXone(*) 2 GM ADDV.VIAL IVPB ONE; fentaNYL* 50 MCG/ML 2 ML VIAL (100 MCG VIAL) IV PRN; fentaNYL* 50 MCG/ML 2 ML VIAL (100 MCG VIAL) ONE; oxyCODONE TAB* 5 MG TAB PO PRN
[2019-02-20 15:15] VITALS: BP 119/61
--- NOTE | 2019-02-20 15:20 | OP ---
CC: Dr. Vidales* OPERATIVE REPORT: DATE OF OPERATION: 02/20/19 - SDS DATE OF : 59 SURGEON: Galo Tovar MD ANESTHESIA: General. ANESTHESIOLOGIST: Dr. Chhaya Garcia. PRE-OP DIAGNOSES: 1. Status post placement of left nephroureteral stent. 2. Proximal left ureteral calculus. POST-OP DIAGNOSES: 1. Status post placement of left nephroureteral stent. 2. Proximal left ureteral calculus. OPERATIVE PROCEDURE: 1. Removal of left nephroureteral stent. 2. Left ureteroscopy. 3. Laser lithotripsy of left ureteral calculus. 4. Left retrograde pyelography and placement of left ureteral stent (7-Malagasy). INDICATION FOR PROCEDURE: Mrs. Obando is a 63-year-old white female, who presented to the emergency room at [facility] [place] about 3 weeks ago with 2 to 3 days history of fevers, chills and was noted on admission to be in septic shock with hypotension, the CT showed obstructing calculus in the proximal left ureter, her urine was infected. The patient was resuscitated in the emergency room and because there was no availability of interventional radiology at [facility] [place] that evening, was transferred to [facility] on pressors and antibiotics. At [facility], she had urgent placement of left nephrostomy tube, continued on antibiotics treatment and she recovered from her sepsis. The left nephrostomy tube was then converted to a nephro-ureteral stent. Urine culture grew pansensitive E. coli. The patient did very well and is now fully recovered. She is now brought in for definitive treatment of the stone. Preoperative KUB showed the nephroureteral stent in good position and a 1 cm radiopaque calculus in the proximal left ureter. PATHOLOGY: At cystoscopy, the bladder mucosa looked normal. The distal limb of the stent was seen coming from the left ureteral orifice. Upon left ureteroscopy, there was a 1 cm calculus that was impacted in the proximal left ureter. The calculus had the gross appearance of a calcium oxalate stone. There was significant degree of edema, hyperemia and abrasion of the ureteral mucosa at the site where the stone was located. DESCRIPTION OF PROCEDURE: The patient was placed under general anesthesia and was in the supine position on the cystoscopy table. The site of the left nephrostomy tube was then prepped with Betadine. The suture was removed and the nephrostomy tube was cut flush with the skin. The patient was then placed in the lithotomy position and was prepped and draped for the cystoscopy. Cystoscopy was performed. The bladder was inspected and the above findings were noted. The distal limb of the stent was then pulled out to the level of the urethral meatus and a flexible tip guidewire was introduced through the lumen of the stent and positioned in the area of the renal pelvis and the stent was removed. The string at the proximal end of the stent/nephrostomy tube was intact. A size 6.5 semirigid ureteroscope was then introduced inside the bladder. A flexible tip basket was then introduced through the port of the ureteroscope and the flexible tip was then introduced into the left ureteral orifice alongside the guidewire. Because of the presence of the stent, the ureter was nicely dilated and allowed atraumatic introduction of the ureteroscope into the proximal ureter where the calculus was identified. It was impacted in the anterior aspect of the ureteral wall with adjacent significant degree of edema. The calculus could not be dislodged with the basket. A 550 micron laser fiber was then introduced through the ureteroscope. Using the fiber without firing the laser energy, the stone was successfully disimpacted. It was then fragmented into multiple small fragments using the laser energy making sure there was no trauma to the ureteral wall. The basket was then introduced through the ureteroscope and the stone fragments were then extracted. The fragments were sent for stone analysis. Final ureteroscopy showed intact ureteral wall and no significant stone fragments left. Again was noted the edema, hyperemia and the abrasion of the mucosa of the ureteral wall at the site of the stone impaction. The cystoscope was then fed on top of the guidewire. Retrograde pyelography was performed. A size 7-Malagasy stent was then placed with the proximal end coiling in the renal pelvis and distal end coiling inside the bladder. There was good drainage of contrast from the kidney and no extravasation. The patient tolerated the procedure well and left the operating room in good condition. The plan is to leave the stent in place for about 12 days. It will be removed in the office under local anesthesia. [id number]/[facility] #: [id number] ANTONIO
== END | disposition home or self-care (01) ==
LOC: OR 08:11
PROVIDERS: ATTEND Urology
DX: N20.1 Calculus of ureter (principal); I10 Essential (primary) hypertension; K76.0 Fatty (change of) liver, not elsewhere classified; F41.9 Anxiety disorder, unspecified; Z83.3 Family history of diabetes mellitus
CPT/HCPCS: 74420; 82365; 88300; A9270-GY; C1876; J0696; J1100; J2250; J2405; J2704; J3010